=== PATIENT | male | born 1990 | race Caucasian/White ===

== ENCOUNTER 2025-08-07 08:10 | Outpatient (CLI) | payer OTHER, SELFPAY ==
--- NOTE | ~2025-08-07 | CT_ITS ---
EXAMINATION: CT sinus wo con DATE: 08/07/2025 08:27 INDICATION: Chronic sinusitis TECHNIQUE: Computed tomography (CT) of the paranasal sinuses was performed without intravenous contrast. The dose-length product was 278.24 mGy-cm. Automated exposure control and iterative reconstruction technique were employed. COMPARISON: None FINDINGS: There is mucosal thickening of the maxillary and the ethmoid sinuses. There is a mucous retention cyst of the right maxillary sinus. Mastoids are pneumatized. No air-fluid levels. No mucoperiosteal reaction. Leftward nasal septal deviation. Ostiomeatal units are patent. Mastoids are pneumatized. IMPRESSION: 1. Mild sinus disease. Reviewed, dictated and finalized at location O. HANGER IMPRESSION: 1. Mild sinus disease.
== END 2025-08-07 08:11 | disposition home or self-care (01) ==
LOC: MICIMG 08:12
PROVIDERS: PCP Family Medicine; Visit Provider Otolaryngology
DX: J32.9 Chronic sinusitis, unspecified (principal); J34.2 Deviated nasal septum; J34.3 Hypertrophy of nasal turbinates
CPT/HCPCS: 70486